=== PATIENT | male | born 1950 | race Asian ===

== ENCOUNTER 2018-06-25 07:15 | Emergency (ER) | payer MEDICARE ==
[~2018-06-25] VITALS: Ht 162.6 cm; Wt 55.0 kg
[2018-06-25] MEDS ORDERED: DiphenhydrAMINE HCL 50 MG/ML VIAL IM ONE (07:30)
[2018-06-25] MEDS ORDERED: HALOPERIDOL LACTATE 5 MG/ML VIAL IM ONE (07:30)
[2018-06-25] MEDS ORDERED: LORazepam 2 MG/ML VIAL IM ONE (07:30)
[2018-06-25] MEDS ORDERED: ASPI-1188 PO (07:52)
[2018-06-25] MEDS ORDERED: CARV3 PO (07:52)
[2018-06-25] MEDS ORDERED: ATOR40TA28 PO (07:52)
[2018-06-25] MEDS ORDERED: FERR-89 PO (07:52)
[2018-06-25] MEDS ORDERED: LISI-662 PO (07:52)
[2018-06-25] MEDS ORDERED: CALC25 PO (07:52)
[2018-06-25] MEDS ORDERED: HEPA500041 SQ (07:52)
[2018-06-25] MEDS ORDERED: INSLAN SQ (08:04)
[2018-06-25] MEDS ORDERED: INSU100V SQ (08:04)
[2018-06-25 08:42] LABS: ANION GAP 8 mmol/L (8-16); BASOPHILS % (AUTO) 0.1 % (0.0-2.0); CALCIUM, TOTAL 8.6 mg/dL (8.8-10.5); CARBON DIOXIDE 28 mmol/L (22-29); CHLORIDE 105 mmol/L (98-107); CREATININE 2.29 mg/dL (0.60-1.30); EOSINOPHILS % (AUTO) 0.3 % (1.0-6.0); GLOMERULAR FILTR. RATE CALC 29 mL/min (>60); GLUCOSE,RANDOM 70 mg/dL (70-110); HEMATOCRIT 30.7 % (41-53); HEMOGLOBIN 9.8 g/dL (13.5-17.5); LYMPHOCYTES # (AUTO) 0.6 K/uL (1.0-4.8); LYMPHOCYTES % (AUTO) 4.4 % (22.0-44.0); MEAN CORPUSCULAR HEMOGLOBIN 29.9 pg (26.0-34.0); MEAN CORPUSCULAR HGB CONC 31.9 G/dL (31.0-37.0); MEAN CORPUSCULAR VOLUME 94 fL (80-100); MONOCYTES # (AUTO) 0.9 K/uL (0.1-1.0); MONOCYTES % (AUTO) 6.7 % (2.0-9.0); NEUTROPHILS # (AUTO) 11.7 K/uL (1.8-7.7); PLATELET COUNT (AUTO) 100 K/uL (150-450); POTASSIUM 3.8 mmol/L (3.5-5.1); RED BLOOD CELL COUNT(AUTO) 3.28 MIL/uL (4.50-5.90); RED CELL DISTRIBUTION WIDTH 21.1 % (11.5-14.5); SODIUM SERUM 141 mmol/L (136-145); UREA NITROGEN, BLOOD 27 mg/dL (7-18)
[2018-06-25 08:44] LABS: NEUTROPHILS % (AUTO) 88.5 % (40.0-70.0)
[2018-06-25 08:47] LABS: ALANINE AMINOTRANSFERASE 48 U/L (12-78); ALBUMIN 2.8 g/dL (3.4-5.0); ALKALINE PHOSPHATASE 171 U/L (46-116); ASPARTATE AMINOTRANSFERASE 59 U/L (15-37); BILIRUBIN,TOTAL 0.9 mg/dL (0.1-1.0); TOTAL PROTEIN, SERUM 6.2 g/dL (6.4-8.2)
[2018-06-25 08:56] LABS: AMPHET/METH SCREEN,URINE POSITIVE (NEGATIVE); BARBITURATE SCREEN, URINE NEGATIVE (NEGATIVE); BENZODIAZEPINES SCREEN,URINE NEGATIVE (NEGATIVE); CANNABINOID SCREEN,URINE NEGATIVE (NEGATIVE); COCAINE SCREEN,URINE NEGATIVE (NEGATIVE); METHADONE SCREEN, URINE NEGATIVE (NEGATIVE); OPIATE SCREEN,URINE NEGATIVE (NEGATIVE)
[2018-06-25 08:59] LABS: PHENCYCLIDINE SCREEN,URINE NEGATIVE (NEGATIVE)
[2018-06-25 09:02] LABS: APPEARANCE,URINE TURBID (CLEAR); GLUCOSE, URINE (UA) NEGATIVE (NEGATIVE); KETONES,URINE TRACE mg/dL (NEGATIVE); LEUKOCYTE ESTERASE ,URINE LARGE (NEGATIVE); NITRATE,URINE NEGATIVE (NEGATIVE); OCCULT BLOOD,URINE LARGE (NEGATIVE); PH,URINE 5.5 (5.0-8.0); PROTEIN,URINE SEE CONFIRM (NEGATIVE); UROBILINOGEN,URINE 0.2 mg/dL (<=1.0)
[2018-06-25 09:03] LABS: BILIRUBIN,URINE PRELIM. POSITIVE (NEGATIVE)
[2018-06-25 09:10] LABS: WBC,URINE Full Field /HPF (0-5)
[2018-06-25 09:11] LABS: BACTERIA,URINE Many /HPF (None Seen); SQUAMOUS EPITHELIAL CELL,UR None Seen /LPF (None Seen); YEAST,URINE Moderate /HPF (None Seen)
[2018-06-25 09:12] LABS: SULFOSALICYLIC ACID,URINE 1+ (Negative)
[2018-06-25] MEDS ORDERED: CefTRIAXone 1 GM/DEXTROSE 50 ML IV ONE (09:15)
[2018-06-25 11:44] VITALS: BP 146/71
== END 2018-06-25 12:36 | disposition short-term general hospital (02) ==
LOC: EMS 07:17
DX: R45.851 Suicidal ideations (principal); G93.40 Encephalopathy, unspecified; N39.0 Urinary tract infection, site not specified; I13.2 Hypertensive heart and chronic kidney disease with heart failure and with stage 5 chronic kidney disease, or end stage renal disease; E11.22 Type 2 diabetes mellitus with diabetic chronic kidney disease; N18.6 End stage renal disease; I50.9 Heart failure, unspecified; F41.9 Anxiety disorder, unspecified; F19.90 Other psychoactive substance use, unspecified, uncomplicated; Z99.2 Dependence on renal dialysis; Z79.4 Long term (current) use of insulin; Z79.82 Long term (current) use of aspirin; Z79.899 Other long term (current) drug therapy
CPT/HCPCS: 36415; 51701; 70450; 71045; 80053; 80307; 81001; 82962; 85025; 87077; 87086; 87186; 93005; 96365; 96366; 96372; 99291; G0480; J0696; J1200; J1630; J2060